=== PATIENT | male | born 1990 | race Caucasian/White ===

== ENCOUNTER 2017-04-24 16:32 | Emergency (ER) | payer BC, OTHER ==
[~2017-04-24] VITALS: Ht 190.5 cm; Wt 84.4 kg
[2017-04-24 16:44] VITALS: BP 106/76
== END 2017-04-24 17:55 | disposition home or self-care (01) ==
LOC: ER 16:36
DX: H66.93 Otitis media, unspecified, bilateral (principal); R51 Headache